=== PATIENT | female | born 1950 | race Caucasian/White ===

== ENCOUNTER 2019-12-31 09:22 | Emergency (ER) | payer MEDICARE ==
[~2019-12-31] VITALS: Ht 167.6 cm; Wt 70.3 kg
[~2019-12-31 09:22] MED LIST: BENADRYL25 MG; CHOL10002
== END 2019-12-31 11:19 | disposition home or self-care (01) ==
LOC: ER 09:22
DX: J06.9 Acute upper respiratory infection, unspecified (principal)
CPT/HCPCS: 71046; 99283-25